=== PATIENT | female | born 1965 ===

== ENCOUNTER → 2022-09-13 13:28 | Outpatient (BNVA) | payer MEDICARE, MEDICAID, SELFPAY | PROVIDERS: PCP Registered Nurse; Referring Provider Registered Nurse; Visit Provider Psychiatry & Neurology Neurology | DX: R41.3 Other amnesia (principal); F39 Unspecified mood [affective] disorder; G40.909 Epilepsy, unspecified, not intractable, without status epilepticus; R47.1 Dysarthria and anarthria; G24.5 Blepharospasm; R20.0 Anesthesia of skin | CPT/HCPCS: 99205 ==

== ENCOUNTER → 2022-11-08 12:34 | Outpatient (BNVA) | payer MEDICARE, MEDICAID, SELFPAY | PROVIDERS: PCP Registered Nurse; Referring Provider Registered Nurse; Visit Provider Nurse Practitioner Adult Health | DX: R41.3 Other amnesia (principal); I12.9 Hypertensive chronic kidney disease with stage 1 through stage 4 chronic kidney disease, or unspecified chronic kidney disease; N18.9 Chronic kidney disease, unspecified | CPT/HCPCS: 95908; 99214 ==

== ENCOUNTER → 2022-11-14 08:20 | Outpatient (BNVA) | payer MEDICARE, MEDICAID, SELFPAY | PROVIDERS: PCP Registered Nurse; Referring Provider Registered Nurse; Visit Provider Psychiatry & Neurology Neurology ==

== ENCOUNTER → 2023-01-18 10:58 | Outpatient (BNVA) | payer MEDICARE, MEDICAID, SELFPAY | PROVIDERS: PCP Registered Nurse; Referring Provider Registered Nurse; Visit Provider Psychiatry & Neurology Neurology | DX: R41.3 Other amnesia (principal); F39 Unspecified mood [affective] disorder; G40.909 Epilepsy, unspecified, not intractable, without status epilepticus; R47.1 Dysarthria and anarthria; G24.5 Blepharospasm; G56.22 Lesion of ulnar nerve, left upper limb; I12.9 Hypertensive chronic kidney disease with stage 1 through stage 4 chronic kidney disease, or unspecified chronic kidney disease; N18.9 Chronic kidney disease, unspecified | CPT/HCPCS: 99215 ==

== ENCOUNTER → 2023-07-04 10:26 | Outpatient (BNVA) | payer MEDICARE, MEDICAID, SELFPAY | PROVIDERS: PCP Registered Nurse; Referring Provider Registered Nurse; Visit Provider Psychiatry & Neurology Neurology | DX: R41.3 Other amnesia (principal); R20.0 Anesthesia of skin; G40.909 Epilepsy, unspecified, not intractable, without status epilepticus; R47.1 Dysarthria and anarthria; G56.22 Lesion of ulnar nerve, left upper limb; G24.5 Blepharospasm | CPT/HCPCS: 99214 ==

== ENCOUNTER → 2023-11-29 13:27 | Outpatient (BNVA) | payer MEDICARE, MEDICAID, SELFPAY | PROVIDERS: PCP Registered Nurse; Referring Provider Registered Nurse; Visit Provider Psychiatry & Neurology Neurology | DX: G40.909 Epilepsy, unspecified, not intractable, without status epilepticus (principal); G56.22 Lesion of ulnar nerve, left upper limb; R41.3 Other amnesia; M65.312 Trigger thumb, left thumb; R20.0 Anesthesia of skin; R47.1 Dysarthria and anarthria; G24.5 Blepharospasm | CPT/HCPCS: 99213 ==

== ENCOUNTER → 2024-03-13 08:08 | Outpatient (BNVA) | payer MEDICARE, MEDICAID, SELFPAY | PROVIDERS: PCP Registered Nurse; Referring Provider Registered Nurse; Visit Provider Psychiatry & Neurology Neurology | DX: R41.3 Other amnesia (principal); G56.22 Lesion of ulnar nerve, left upper limb; R20.0 Anesthesia of skin; G40.909 Epilepsy, unspecified, not intractable, without status epilepticus; R47.1 Dysarthria and anarthria; G24.5 Blepharospasm | CPT/HCPCS: 99214 ==

== ENCOUNTER → 2024-05-15 08:30 | Outpatient (BNVA) | payer MEDICARE, MEDICAID, SELFPAY | PROVIDERS: PCP Registered Nurse; Referring Provider Registered Nurse; Visit Provider Psychiatry & Neurology Neurology | DX: R20.0 Anesthesia of skin (principal); G40.909 Epilepsy, unspecified, not intractable, without status epilepticus; R47.1 Dysarthria and anarthria; G24.5 Blepharospasm; G56.22 Lesion of ulnar nerve, left upper limb; R41.3 Other amnesia | CPT/HCPCS: 99213 ==